=== PATIENT | female | born 1985 | race Two or more races ===

== ENCOUNTER 2017-06-13 23:28 | Emergency (ER) | payer OTHER ==
[~2017-06-13] VITALS: Ht 170.2 cm; Wt 88.5 kg
[2017-06-13 23:35] VITALS: BP 141/84
== END 2017-06-14 00:37 | disposition home or self-care (01) ==
LOC: ER 23:38
DX: J06.9 Acute upper respiratory infection, unspecified (principal); Z88.8 Allergy status to other drugs, medicaments and biological substances
CPT/HCPCS: A4606; Z7610